=== PATIENT | female | born 1965 | race Caucasian/White ===

== ENCOUNTER 2017-11-05 15:43 | Outpatient (CLI) | payer OTHER | END 2017-11-05 15:44 | disposition home or self-care (01) | LOC: BICRAD 15:43 | PROVIDERS: ATTEND Internal Medicine | DX: Z02.71 Encounter for disability determination (principal); M17.11 Unilateral primary osteoarthritis, right knee; M46.96 Unspecified inflammatory spondylopathy, lumbar region | CPT/HCPCS: 72100 ==